=== PATIENT | male | born 1960 | race Caucasian/White ===

== ENCOUNTER → 2025-10-13 | Outpatient (CLI) | payer BC ==
[2025-10-13 13:46] LABS: BASOPHIL # 0.0 10^3/uL (0.0-0.1); BASOPHIL % 0.4 % (0.2-1.2); EOSINOPHIL # 0.1 10^3/uL (0.0-0.2); EOSINOPHIL % 1.5 % (0.0-5.0); HEMATOCRIT(ML) 53.0 % (37.0-53.0); IG % 0.30 % (0.00-0.50); LYMPHOCYTES # 1.40 10^3/uL1 (1.0-4.8); LYMPHOCYTES % 19.2 % (24.0-44.0); MEAN CORP HGB 30.5 pg (26-34); MEAN CORP HGB CONCENTRATION 34.0 g/dL (33-36.5); MEAN CORP VOLUME 89.7 fL (78-100); MONOCYTES # 0.6 10^3/uL (0.3-0.8); MONOCYTES % 8.1 % (5.0-12.0); NEUTROPHIL # 5.1 10^3/uL (1.8-7.7); NEUTROPHILS % 70.5 % (41.0-85.0); RED BLOOD CELL 5.91 10^6/uL (4.50-5.90); RED CELL DISTRIBUTION WIDTH 12.9 % (11.5-14.5); WHITE BLOOD CELL 7.3 10^3/uL (4.5-11.0)
[2025-10-13 14:13] LABS: ALANINE AMINOTRANSFERASE(ML) 56.0 U/L (12-78); ALBUMIN(ML) 3.9 g/dL (3.4-5.0); CREATININE SERUM 1.16 mg/dL (0.59-1.40); EST GFR, NON-AA 63.4 (>/=60); TROPONIN I HIGH SENSITIVITY 10.0 ng/L (0-75)
== END | disposition home or self-care (01) ==
LOC: LAB 13:25
PROVIDERS: ATTEND Nurse Practitioner Family
DX: R07.89 Other chest pain (principal); R53.83 Other fatigue
CPT/HCPCS: 36415; 71046; 80050; 83880; 84439; 84484; 85379